=== PATIENT | male | born 1970 | race Caucasian/White ===

== ENCOUNTER 2017-05-19 19:52 | Emergency (ER) | payer OTHER ==
[2017-05-19 20:20] VITALS: BP 119/80
[2017-05-19] MEDS ORDERED: predniSONE 20 MG TABLET PO STA (20:34)
[2017-05-19] MEDS ORDERED: HYDROcod/ACET 5/325 Prepack 6 PO STA (20:34)
--- NOTE | 2017-05-19 20:39 | ED Physician Documentation ---
History of Present Illness - Stated complaint Stated Complaint: R HAND SWELLING - Chief complaint Chief Complaint: General - History obtained from History obtained from: Patient, Family - History of Present Illness Timing: Other (Previously healthy 46-year-old gentleman who about 5 months ago started developing rapidly migrating Joint swelling. It would start from the finger and then moved her finger on the other hand the next day. It has involved both hands and feet and occasionally his foreskin as well, and today he had some sensation of throat swelling and he has a lot of right hand swelling today which is worse than it has ever been. His weight has been stable but he has had some night sweats. [place] with presumptive rheumatoid arthritis based on labs per him, although I do not have access to these labs tonight. He has been referred to a director diabetes.) Review of Systems Constitutional: reports: Myalgias, Fatigue, Sweats. denies: Fever, Chills, Weight Loss Ears: denies: Loss of hearing, Ear pain Nose: denies: Rhinorrhea / runny nose, Congestion PD PAST MEDICAL HISTORY - Present Medications Home Medications: Ambulatory Orders Medication Instructions Recorded Confirmed predniSONE [Deltasone] 20 mg PO [id number] #21 tab 05/19/17 PD ED PE NORMAL - Vitals Vital signs reviewed: Yes - General General: Alert and oriented X 3, No acute distress - HEENT HEENT: Other - Neck Neck: Supple, no meningeal sign (No current angioedema of the oropharynx), No bony TTP - Derm Derm: Other (Significant circumferential's angioedema of the foreskin) - Extremities Extremities: Other (He has significant and diffuse angioedema of the right hand making it difficult for him to range it, although there is no focal joint swelling. There is no warmth or redness.) - Neuro Neuro: Alert and oriented X 3, Normal speech - Psych Psych: Normal mood, Normal affect Results - Vitals Vitals: Vital Signs - 24 hr 05/19/17 20:15 Temperature 36.9 C Heart Rate 100 Respiratory 16 Rate Blood Pressure 119/80 O2 Saturation 97 Oxygen O2 Source Room air PD MEDICAL DECISION MAKING - ED course ED course: 46-year-old gentleman presents with some sort of autoimmune process exacerbation pending rheumatology workup. He is started on steroids for his symptoms right now. Departure - Departure Disposition: 01 Home, Self Care Clinical Impression: Angioedema Qualifiers: Encounter type: initial encounter Qualified Code(s): T78.3XXA - Angioneurotic edema, initial encounter Condition: Good Record reviewed to determine appropriate education?: Yes Prescriptions: predniSONE [Deltasone] 20 mg PO [id number] #21 tab Comments: Return if worse in anyway or if new symptoms develop. Try to follow-up with the director diabetes as soon as possible.
[2017-05-19] MEDS ORDERED: HYDROcod/ACET 5/325 Prepack 6 PO ONE (20:43)
[2017-05-19] MEDS ORDERED: predniSONE 20 MG TABLET ONE (20:44)
== END 2017-05-19 20:49 | disposition home or self-care (01) ==
LOC: ED 19:52
DX: T78.3XXA Angioneurotic edema, initial encounter (principal)
CPT/HCPCS: 99283; J7512

== ENCOUNTER 2017-09-21 22:12 | Emergency (ER) | payer OTHER ==
[2017-09-21] MEDS ORDERED: AMOX/CLAV 875 MG/125 MG TABLET PO STA (22:35)
[2017-09-21] MEDS ORDERED: TETANUS/DIPHTHERIA/PERTUSSIS 0.5 ML SYRINGE IM ONE ×2 (22:35→22:46)
--- NOTE | 2017-09-21 22:38 | ED Physician Documentation ---
PD HPI ANIMAL BITE - Stated complaint Stated Complaint: DOG BITE - Chief complaint Chief Complaint: Wound - History obtained from History obtained from: Patient, Family - History of Present Illness Location of injury(ies): Other (R hand) Details of the event: Dog, Bite, Pet animal, Immunized Timing - onset: How many hours ago (1) Timing - duration: Hours (1) Timing - details: Abrupt onset Pain level max: 4 Pain level now: 2 Improved by: Rest Worsened by: Moving, Palpating Associated symptoms: No: Weakness, Numbness, Tingling, Swelling Contributing factors: No: Immunocompromised, Asplenic, Anticoagulated, Un/under immunized - Additional information Additional information: states his dog bit him tonight. Bite to R palm. Review of Systems Constitutional: denies: Fever, Chills Respiratory: denies: Cough GI: denies: Nausea, Vomiting Skin: denies: Rash Musculoskeletal: denies: Neck pain, Back pain PD PAST MEDICAL HISTORY - Past Medical History Past Medical History: Yes Cardiovascular: None Respiratory: None Endocrine/Autoimmune: None GI: Other : None HEENT: None Psych: None Musculoskeletal: None Derm: Other - Past Surgical History Past Surgical History: Yes General: Cholecystectomy HEENT: Other - Present Medications Home Medications: Ambulatory Orders Medication Instructions Recorded Confirmed Amox/Clav 875/125 [Augmentin] 1 each PO Q12H #14 tablet 09/21/17 - Allergies Allergies/Adverse Reactions: Allergies Allergy/AdvReac Type Severity Reaction Status Date / Time No Known Drug Allergies Allergy Verified 05/19/17 20:40 - Social History Does the pt smoke?: Yes Smoking Status: Current every day smoker Does the pt drink ETOH?: Yes Does the pt have substance abuse?: No - Immunizations Immunizations are current?: Yes Immunizations: TDAP >10years/unknown - POLST Patient has POLST: No PD ED PE NORMAL - Vitals Vital signs reviewed: Yes - General General: Alert and oriented X 3, No acute distress - Derm Derm: Warm and dry - Extremities Extremities: Other (R hand - small puncture to thenar eminence, 0.2cm. not bleeding. o/w normal exam. No tendon injury. NVI.) - Neuro Neuro: Alert and oriented X 3 Results - Vitals Vitals: Vital Signs - 24 hr 11/18/17 11/18/17 22:16 22:56 Temperature 98.2 C H 36.5 C Heart Rate 115 H 100 Respiratory 20 20 Rate Blood Pressure 145/88 H 140/80 H O2 Saturation 95 95 Oxygen O2 Source Room air PD MEDICAL DECISION MAKING - ED course Complexity details: considered differential, d/w patient ED course: Patient is a 47-year-old male who presents to the emergency department with a right hand dog bite. Tdap given. Wound was irrigated and bandaged. Augmentin given here and will prescribe for home. Patient counseled regarding signs and symptoms for which I believe and urgent re-evaluation would be necessary. Patient with good understanding of and agreement to plan and is comfortable going home at this time This document was made in part using voice recognition software. While efforts are made to proofread this document, sound alike and grammatical errors may occur. Departure - Departure Disposition: 01 Home, Self Care Clinical Impression: Dog bite Qualifiers: Encounter type: initial encounter Qualified Code(s): W54.0XXA - Bitten by dog, initial encounter Condition: Good Instructions: ED Bite Animal General Follow-Up: Pepe David MD [Primary Care Provider] - Within 1 week (for wound check) Prescriptions: Amox/Clav 875/125 [Augmentin] 1 each PO Q12H #14 tablet Comments: Take all antibiotics until gone. Return if you worsen including redness, swelling or drainage from the wound. Discharge Date/Time: 09/21/17 22:57
[2017-09-21] MEDS ORDERED: AMOX/CLAV 875 MG/125 MG TABLET PO ONE (22:46)
[2017-09-21 22:57] VITALS: BP 140/80
== END 2017-09-21 22:57 | disposition home or self-care (01) ==
LOC: ED 22:12
DX: S61.451A Open bite of right hand, initial encounter (principal); W54.0XXA Bitten by dog, initial encounter; F17.200 Nicotine dependence, unspecified, uncomplicated; Z23 Encounter for immunization
CPT/HCPCS: 90471; 90715; 99283; A9270